=== PATIENT | female | born 1990 | race Asian ===

== ENCOUNTER 2021-01-10 17:30 | Emergency (ER) | payer OTHER ==
[~2021-01-10] VITALS: Ht 170.2 cm; Wt 86.2 kg
[2021-01-10 17:45] VITALS: TEMP 98.8
[2021-01-10 18:44] LABS: PLATELET COUNT 298 K/uL (152-353)
[2021-01-10 18:57] LABS: POTASSIUM 3.5 mmol/L (3.6-5.2)
[2021-01-10 19:00] VITALS: BP 119/75
== END 2021-01-10 19:47 | disposition short-term general hospital (02) ==
LOC: ED 17:30
PROVIDERS: Family Medicine
DX: O60.03 Preterm labor without delivery, third trimester (principal); Z3A.38 38 weeks gestation of pregnancy
CPT/HCPCS: 36415; 80053; 81000; 85027; 87077; 87086; 87088; 87186; 96360; 99284

== ENCOUNTER 2021-06-22 09:40 | Emergency (ER) | payer OTHER ==
[~2021-06-22] VITALS: Ht 170.2 cm; Wt 77.1 kg
[2021-06-22 09:47] VITALS: BP 103/68; TEMP 98.6
== END 2021-06-22 12:54 | disposition home or self-care (01) ==
LOC: ED 09:40
DX: J06.9 Acute upper respiratory infection, unspecified (principal); Z20.822 Contact with and (suspected) exposure to COVID-19
CPT/HCPCS: 87635; 87651; 99283; U0003